=== PATIENT | female | born 1980 | race Caucasian/White ===

== ENCOUNTER 2020-03-26 11:21 | Emergency (ER) | payer OTHER ==
[~2020-03-26] VITALS: Ht 172.7 cm; Wt 154.0 kg
[2020-03-26 11:55] VITALS: BP 128/70
[2020-03-26] MEDS ORDERED: ONDANSETRON 2MG/ML, 2ML IVPush ONE (12:00)
[2020-03-26] MEDS ORDERED: FAMOTIDINE 20 MG/2 ML IV ONE (12:00)
[2020-03-26] MEDS ORDERED: SODIUM CHLORIDE 0.9% 1,000ML IVBOLUS ONE (12:00)
[2020-03-26] MEDS ORDERED: ACETAMINOPHEN 325 MG TABLET ONE (12:20)
[2020-03-26] MEDS ORDERED: ONDANSETRON 2MG/ML, 2ML ONE (12:20)
[2020-03-26] MEDS ORDERED: FAMOTIDINE 20 MG/2 ML ONE (12:20)
--- NOTE | 2020-03-26 12:27 | NUR ---
PIV STARTED AND BLOOD DRAWN. PT MEDICATED PER EMAR. PT RESTING WITH NO COMPLAINTS. CALL LIGHT IN LAP. AT BEDSIDE.
[2020-03-26 12:28] LABS: BASOPHILS # (AUTO) 0.01 x10^3/uL (0-0.1); BASOPHILS % (AUTO) 0 % (0-1); EOSINOPHILS % (AUTO) 0 % (1-7); LYMPHOCYTES # (AUTO) 1.89 x10^3/uL (1-3.4); LYMPHOCYTES % (AUTO) 39 % (22-44); MD NO; MEAN CORPUSCULAR HEMOGLOBIN 30.1 pg (27.0-34.8); MEAN CORPUSCULAR HGB CONC 33.5 g/dL (32.4-35.8); MEAN CORPUSCULAR VOLUME 89.8 fL (80-100); MEAN PLATELET VOLUME 7.7 fL (7.4-10.4); MONOCYTES # (AUTO) 0.23 x10^3/uL (0.2-0.8); MONOCYTES % (AUTO) 5 % (2-9); NEUTROPHILS # (AUTO) 2.75 x10^3/uL (1.8-6.8); NEUTROPHILS % (AUTO) 56 % (42-75); PLATELET COUNT 200 x10^3/uL (130-400); RED BLOOD COUNT 5.24 x10^6/uL (3.82-5.3)
[2020-03-26] MEDS ORDERED: ACETAMINOPHEN 325 MG TABLET PO ONE (12:30)
[2020-03-26 12:39] LABS: ALBUMIN 3.4 g/dL (3.4-5.0); ANION GAP 6 mmol/L (5-15); CALCIUM 8.9 mg/dL (8.5-10.1); CHLORIDE 103 mmol/L (98-107)
[2020-03-26 12:44] LABS: ALANINE AMINOTRANSFERASE 85 U/L (12-78); ALKALINE PHOSPHATASE 130 U/L (45-117); BILIRUBIN,TOTAL 1.5 mg/dL (0.2-1.0); CREATININE 0.84 mg/dL (0.55-1.02); TOTAL PROTEIN 7.9 g/dL (6.4-8.2)
--- NOTE | 2020-03-26 14:00 | NUR ---
REPORT FROM VIC LOERA. PT CARE RESPONSIBILITIES ASSUMED.
[2020-03-26 14:56] LABS: MICROSCOPIC INDICATED
== END 2020-03-26 15:59 | disposition home or self-care (01) ==
LOC: ED 13:26
DX: A08.4 Viral intestinal infection, unspecified (principal); R11.2 Nausea with vomiting, unspecified; R19.7 Diarrhea, unspecified; M79.10 Myalgia, unspecified site; R51 Headache; Z87.891 Personal history of nicotine dependence
CPT/HCPCS: 36415; 80053; 81001; 83690; 84703; 85025; 87086; 96361; 96374; 96375; 99284; J2405; J3490; J7030